=== PATIENT | female | born 1990 | race Two or more races ===

== ENCOUNTER 2017-03-30 07:43 | Inpatient (IN) | payer MEDICAID ==
[~2017-03-30] VITALS: Ht 165.1 cm; Wt 72.7 kg
[~2017-03-30 07:43] MED LIST: DOCU-131 PO; IBUP-1222 PO; OXYC-305 PO; PREN1TAB27 PO
[2017-03-30] MEDS ORDERED: NEWBORN KIT ONE (08:20)
[2017-03-30 08:27] VITALS: BP 116/74
[2017-03-30 08:30] VITALS: BP 116/74
[2017-03-30] MEDS ORDERED: OXYTOCIN 30U/ 0.9% NaCL 500ML 500 ML IV ONE (08:33)
[2017-03-30] MEDS ORDERED: PLEASE ENTER HEIGHT AND WEIGHT MC SCH (09:00)
[2017-03-30] MEDS ORDERED: FENTANYL PF 100 MCG/2ML IV PRN (09:00)
[2017-03-30] MEDS ORDERED: ONDANSETRON 2MG/ML, 2ML IVPush PRN (09:00)
[2017-03-30] MEDS ORDERED: FENTANYL PF 100 MCG/2ML IVPush PRN (09:00)
[2017-03-30 09:20] LABS: HEMATOCRIT 39.6 % (34.6-47.8); HEMOGLOBIN 13.4 g/dL (11.7-16.4); WHITE BLOOD COUNT 8.4 x10^3/uL (3.4-10)
[2017-03-30] MEDS ORDERED: OXYTOCIN 30U/ 0.9% NaCL 500ML 500 ML IV PRN (10:13)
[2017-03-30] MEDS ORDERED: OXYTOCIN 30U/ 0.9% NaCL 500ML 500 ML ONE ×2 (10:52→17:35)
[2017-03-30] MEDS: LACTATED RINGERS 1,000 ML IV SCH ×2 (11:03→16:34)
[2017-03-30] MEDS ORDERED: FENTANYL PF 100 MCG/2ML ONE (15:15)
[2017-03-30] MEDS ORDERED: LIDOCAINE 1%, 20ML ONE (15:31)
[2017-03-30] MEDS ORDERED: MISOPROSTOL 200 MCG TABLET ONE (15:31)
[2017-03-30] MEDS ORDERED: MISOPROSTOL 200 MCG TABLET PR ONE (16:30)
[2017-03-30] MEDS: OXYTOCIN 30U/ 0.9% NaCL 500ML 500 ML IV SCH (16:38)
[2017-03-30] MEDS ORDERED: ACETAMINOPHEN 325 MG TABLET PO PRN (17:00)
[2017-03-30] MEDS ORDERED: OXYTOCIN 10 UNITS/ML, 1ML IM PRN (17:00)
[2017-03-30] MEDS ORDERED: OXYcodone/APAP 5/325MG TABLET PO PRN ×2 (17:00)
[2017-03-30] MEDS ORDERED: METHYLERGONOVINE 0.2 MG/ML IM PRN (17:00)
[2017-03-30] MEDS ORDERED: MISOPROSTOL 200 MCG TABLET PR PRN (17:00)
[2017-03-30] MEDS ORDERED: ONDANSETRON 2MG/ML, 2ML IV PRN (17:00)
[2017-03-30] MEDS ORDERED: CARBOPROST TROMETHAMINE 250 MCG/ML, 1ML IM PRN (17:00)
[2017-03-30 18:24] VITALS: BP 117/58
[2017-03-30 19:40] VITALS: BP 97/56
[2017-03-30] MEDS: IBUPROFEN 600 MG TABLET PO PRN (22:16)
[2017-03-31 00:45] VITALS: BP 89/51
[2017-03-31] MEDS: OXYTOCIN 30U/ 0.9% NaCL 500ML 500 ML IV SCH (02:38)
[2017-03-31 04:30] VITALS: BP 91/62
[2017-03-31 05:25] LABS: HEMOGLOBIN 13.6 g/dL (11.7-16.4); WHITE BLOOD COUNT 13.1 x10^3/uL (3.4-10)
[2017-03-31 07:15] VITALS: BP 107/70
[2017-03-31] MEDS ORDERED: PRENATAL VIT/IRON/FA 1 EACH TABLET ONE (07:47)
[2017-03-31] MEDS: IBUPROFEN 600 MG TABLET PO PRN (07:54)
[2017-03-31] MEDS ORDERED: PRENATAL VIT/IRON/FA 1 EACH TABLET PO SCH (09:00)
[2017-03-31] MEDS ORDERED: HYDR-3240 PO (10:17)
[2017-03-31] MEDS ORDERED: IBUP-1222 PO (10:19)
[2017-03-31] MEDS ORDERED: SENN-52 PO (10:20)
[2017-03-31 11:25] VITALS: BP 99/64
== END 2017-03-31 16:02 | disposition home or self-care (01) | DRG 775 ==
LOC: LDOP 07:43 → LDIP 08:07 → 2NW 18:05
PROVIDERS: ADMIT Obstetrics & Gynecology; ATTEND Obstetrics & Gynecology
PROC: 10E0XZZ Delivery of Products of Conception, External Approach (ICD-10-PCS; principal; 2017-03-30)
DX: O66.0 Obstructed labor due to shoulder dystocia (principal); Z37.0 Single live birth; Z3A.38 38 weeks gestation of pregnancy
CPT/HCPCS: 36415; 85025; 86850; 86900; J3010; J2590; J7120